=== PATIENT | female | born 2000 | race Caucasian/White ===

== ENCOUNTER 2022-10-23 01:02 | Emergency (ER) | payer BC, SELFPAY ==
[2022-10-23 01:11] VITALS: BP 115/76; PULSE 76; RESP 18; TEMP 36.7; O2SAT 99; BMI 21.9
[2022-10-23] MEDS: ONDANSETRON ODT 4 MG TAB PO (01:58)
--- NOTE | 2022-10-23 03:40 | ED_ITS ---
History of Present Illness General Chief Complaint: Epistaxis/Nosebleed Stated Complaint: Nosebleed Time Seen by Provider: 10/23/22 01:31 History of Present Illness HPI Narrative: 22-year-old young woman presenting to the emergency department with some cough and cold symptoms recently. Has had a couple nosebleeds lately. Tonight rubbed across her nose while in the shower and began bleeding. Is also feeling dizzy she says, but with further questioning this is actually lightheaded and nauseated; maybe from swallowing blood she thinks. Is not short of breath. No chest pain. Historically no bleeding problem noted. Related Data Home Medications Medication Instructions Recorded Confirmed fluoxetine 20 mg capsule (Prozac) 20 mg PO DAILY 10/23/22 10/23/22 Allergies Allergy/AdvReac Type Severity Reaction Status Date / Time No Known Drug Allergies Allergy Verified 10/24/22 15:45 Review of Systems Status of ROS: Reports: 6 or more systems reviewed and unremarkable except as noted in History and below PFSH PFSH Social History Smoking Status: Never smoker Do you use any of these nicotine containing products: None Second hand tobacco smoke exposure: No How often do you have a drink containing alcohol: never How often do you have six or more drinks on one occasion: Never AUDIT-C Alcohol total score: 0 Non-prescribed substance use: denies use Exam Narrative: Exam Narrative: Pleasant. Appeared in some mild distress and anxious ambulating to the bathroom at one point. I assess Pablo back in the room. Nose appears quite symmetrical. Prominent vasculature in distal left nasal septum. I think this likely is the source of bleed. There is a small pit in the right mid septum. No active bleeding in the posterior oropharynx or elsewhere. No unusual swellings. Mucous membranes do not appear particularly pale. Cranial nerves 2- 12 look to be intact. No nystagmus evident. Breathing easily. Heart in regular rate and rhythm. Const: Vital Signs, click to edit/add: Vital Signs - 24 hr 10/23/22 01:11 Temperature 98.1 F Pulse Rate [Pulse Oximeter] 76 Respiratory Rate 18 Blood Pressure [Le ft Upper Arm] 115/76 Pulse Oximetry 99 Oxygen Delivery Me thod Room Air Documenting provider has reviewed patient's vital signs: yes Course Vital Signs Vital signs: Initial Vital Signs Temperature 98.1 F 10/23/22 01:11 Temperature Source Temporal Artery Scan 10/23/22 01:11 Pulse Rate 76 10/23/22 01:11 Pulse Rhythm 10/23/22 01:11 Respiratory Rate 18 10/23/22 01:11 Blood Pressure 115/76 10/23/22 01:11 Blood Pressure Mean 89 10/23/22 01:11 Pulse Oximetry 99 10/23/22 01:11 Oxygen Delivery Method 10/23/22 01:11 Vital Signs Temperature 98.1 F 10/23/22 01:11 Pulse Rate 76 10/23/22 01:11 Respiratory Rate 18 10/23/22 01:11 Blood Pressure 115/76 10/23/22 01:11 Pulse Oximetry 99 10/23/22 01:11 Oxygen Delivery Method 10/23/22 01:11 Temperature 98.1 F 10/23/22 01:11 Pulse Rate 76 10/23/22 01:11 Respiratory Rate 18 10/23/22 01:11 Blood Pressure 115/76 10/23/22 01:11 Pulse Oximetry 99 10/23/22 01:11 Oxygen Delivery Method 10/23/22 01:11 MDM - Epistaxis MDM Narrative Medical decision making narrative: Offered reassurance at this point. Did not feel this requires further workup. I think some understandable anxiety on top of this bleeding has contributed to this sensation of lightheadedness. Given white petroleum jelly from stock here in the emergency department. Cotton balls and returned nose clamp. Discharge Plan Discharge Clinical Impression: Epistaxis Patient Disposition: Home, Self-Care Condition: Improved Instructions: Nosebleed (ED) Additional Instructions: Stay well-hydrated. Consider sleeping under the mist of cool mist humidifier. Can use that white petroleum jelly placing 2-3 times daily through the remainder of winter. If bleeding recurs can pack with cotton ball as discussed and/or apply nasal clamp. Return if can not get it stopped in about an hour. Prescriptions: No Action fluoxetine [Prozac] 20 mg capsule 20 mg PO DAILY Follow Up/Referrals: Nohemy Mir MD [Staff Physician] - Stand Alone Forms: [facility] Info Inst[facility]
== END 2022-10-23 02:09 | disposition home or self-care (01) ==
PROVIDERS: Emergency Provider Family Medicine; PCP Internal Medicine
DX: R04.0 Epistaxis (principal)
CPT/HCPCS: 99282; 99283; A9270

== ENCOUNTER 2022-10-24 15:39 | Emergency (ER) | payer BC, SELFPAY ==
[2022-10-24] VITALS (14 sets, daily range): BP systolic 105–118; BP diastolic 57–81; PULSE 65–82; RESP 16; TEMP 37; O2SAT 93–100; BMI 22.7
--- NOTE | 2022-10-24 16:28 | CRLHL7_ITS ---
For Patients: As a result of the Century Cures Act, medical imaging exams and procedure reports are released immediately into your electronic medical record. You may view this report before your referring provider. If you have questions, please contact your health care provider. INDICATION: Syncope. TECHNIQUE: Chest 1 views. COMPARISON: None. FINDINGS: Cardiovascular and mediastinum: Heart size and vasculature are normal in caliber and appearance. Lungs and pleural spaces: Lungs are clear. No sign of infiltrate or mass. No sign of pleural effusion. No pneumothorax. Bones and soft tissues: No significant findings. IMPRESSION: No acute or significant findings. Dictated by Medhat Nickerson MD @ 10/24/2022 4:39:56 PM (Electronically Signed)
[2022-10-24 17:19] LABS: Basophils Absolute Auto 0.05 K/uL (0.00-0.30); Basophils Percent Auto 0.6 % (0.0-3.0); Eosinophils Absolute Auto 0.12 K/uL (0.00-0.50); Eosinophils Percent Auto 1.5 % (0.0-7.0); Hematocrit 39.8 % (33.0-51.0); Hemoglobin* 13.5 gm/dL (12.0-16.0); Lymphocytes Absolute Auto 1.72 K/uL (0.90-2.90); Lymphocytes Percent Auto 21.8 % (20-44); Mean Corpuscular HGB Conc 34 gm/dL (32-36); Mean Corpuscular Hemoglobin 31 pg (26-34); Mean Corpuscular Volume 92 fL (80-100); Monocytes Percent Auto 6.2 % (0.0-11.0); Neutrophils Absolute Auto 5.51 K/uL (1.7-7.0); Neutrophils Percent Auto 69.9 % (42.0-72.0); Platelet Count* 365 K/uL (140-440); RDW Coefficient of Variation % 12.8 % (11.5-15.5); Red Blood Count 4.32 m/uL (4.00-5.20); White Blood Count* 7.89 K/uL (4.50-11.00)
[2022-10-24 17:20] LABS: Slide Review Reflex No
[2022-10-24 17:56] LABS: NT Pro B Type NatriureticPept* < 20 pg/mL; Troponin I* < 0.01 ng/mL (0.01-0.04)
--- NOTE | 2022-10-24 18:22 | ED.NURSE ---
Pt resting on cart. Denies needs. Awaiting pending lab results.
[2022-10-24 18:29] LABS: D Dimer Quantitative* 0.38 ug/ml (0.00-0.50)
--- NOTE | 2022-10-24 19:16 | ED.GENADULT ---
HPI - General Adult General Chief complaint: Nausea/Vomiting Stated complaint: Passed out this morning,Dizzy,Vomiting,Headache Time Seen by Provider: 10/24/22 16:21 History of Present Illness HPI narrative: 22-year-old young woman returning to the emergency department after passing out shortly after getting up this morning. Does not sound that there was a head injury. Describes an orthostatic like event where she was getting up. Was seen very early this morning here in this emergency department by myself after a period of epistaxis. I did not feel she was likely anemic from this episode. She had reported some lightheadedness. This seemed to have been a stressful experience. Denies history of exercise intolerance. No chest pain or palpitations. No shortness of breath. No fever. Was recommended to return to the emergency department with concern of symptomatic anemia I believe. Frontal headache. No apparent family history of dysrhythmias or sudden cardiac . Related Data Home Medications Medication Instructions Recorded Confirmed fluoxetine 20 mg capsule (Prozac) 20 mg PO DAILY 10/23/22 10/23/22 Allergies Allergy/AdvReac Type Severity Reaction Status Date / Time No Known Drug Allergies Allergy Verified 10/24/22 15:45 Review of Systems Status of ROS: Reports: 6 or more systems reviewed and unremarkable except as noted in History and below PFSH [facility] Social History Smoking Status: Never smoker Do you use any of these nicotine containing products: None Second hand tobacco smoke exposure: No How often do you have a drink containing alcohol: never How often do you have six or more drinks on one occasion: Never AUDIT-C Alcohol total score: 0 Non-prescribed substance use: denies use Exam Narrative: Exam Narrative: Pleasant. Quiet. NAD. Skin is warm and dry. Heart in regular rate and rhythm. Lungs are clear. Head looks to be atraumatic. Neck is supple with soreness in the paracervical musculature. Cranial nerves 2-12 intact. There is no nystagmus. Extraocular movements are full. No facial swelling erythema or tenderness. Not actively bleeding from her nose at this time. TMs are clear. Abdomen is soft. Moving all extremities without difficulty, fluidly, with good strength. No extremity edema. Speaking easily, fluidly. Breathing easily. Const: Vital Signs, click to edit/add: Vital Signs - 24 hr 10/24/22 15:43 10/24/22 16:43 10/24/22 16:55 Temperature 98.6 F Pulse Rate 69 Pulse Rate [Pulse Oximeter] 73 Pulse Rate [orthos tatic lying] 65 Pulse Rate [orthos tatic sitting] 65 Pulse Rate [orthos tatic standing] 65 Respiratory Rate 16 Blood Pressure Blood Pressure [Ri ght Upper Arm] 110/72 Blood Pressure [or thostatic lying Ri ght Arm] 111/75 Blood Pressure [or thostatic sitting Right Arm] 118/57 L Blood Pressure [or thostatic standing Right Arm] 112/69 Pulse Oximetry 98 99 Oxygen Delivery Me thod Room Air 10/24/22 16:58 10/24/22 17:00 10/24/22 17:02 Temperature Pulse Rate 72 68 73 Pulse Rate [Pulse Oximeter] Pulse Rate [orthos tatic lying] Pulse Rate [orthos tatic sitting] Pulse Rate [orthos tatic standing] Respiratory Rate Blood Pressure 112/81 106/81 Blood Pressure [Ri ght Upper Arm] Blood Pressure [or thostatic lying Ri ght Arm] Blood Pressure [or thostatic sitting Right Arm] Blood Pressure [or thostatic standing Right Arm] Pulse Oximetry 97 93 94 Oxygen Delivery Me thod 10/24/22 17:15 10/24/22 17:30 10/24/22 17:32 Temperature Pulse Rate 65 81 73 Pulse Rate [Pulse Oximeter] Pulse Rate [orthos tatic lying] Pulse Rate [orthos tatic sitting] Pulse Rate [orthos tatic standing] Respiratory Rate Blood Pressure 105/67 Blood Pressure [Ri ght Upper Arm] Blood Pressure [or thostatic lying Ri ght Arm] Blood Pressure [or thostatic sitting Right Arm] Blood Pressure [or thostatic standing Right Arm] Pulse Oximetry 100 98 99 Oxygen Delivery Me thod 10/24/22 17:45 10/24/22 18:00 10/24/22 18:01 Temperature Pulse Rate 69 72 70 Pulse Rate [Pulse Oximeter] Pulse Rate [orthos tatic lying] Pulse Rate [orthos tatic sitting] Pulse Rate [orthos tatic standing] Respiratory Rate Blood Pressure 111/67 Blood Pressure [Ri ght Upper Arm] Blood Pressure [or thostatic lying Ri ght Arm] Blood Pressure [or thostatic sitting Right Arm] Blood Pressure [or thostatic standing Right Arm] Pulse Oximetry 99 100 99 Oxygen Delivery Me thod 10/24/22 18:02 10/24/22 18:15 Temperature Pulse Rate 69 82 Pulse Rate [Pulse Oximeter] Pulse Rate [orthos tatic lying] Pulse Rate [orthos tatic sitting] Pulse Rate [orthos tatic standing] Respiratory Rate Blood Pressure Blood Pressure [Ri ght Upper Arm] Blood Pressure [or thostatic lying Ri ght Arm] Blood Pressure [or thostatic sitting Right Arm] Blood Pressure [or thostatic standing Right Arm] Pulse Oximetry 99 97 Oxygen Delivery Me thod Documenting provider has reviewed patient's vital signs: yes Course Vital Signs Vital signs: Initial Vital Signs Temperature 98.6 F 10/24/22 15:43 Temperature Source Temporal Artery Scan 10/24/22 15:43 Pulse Rate 73 10/24/22 15:43 Pulse Rhythm 10/24/22 15:43 Pulse Strength 3+ Normal 10/24/22 15:43 Respiratory Rate 16 10/24/22 15:43 Blood Pressure 110/72 10/24/22 15:43 Blood Pressure Mean 84 10/24/22 15:43 Blood Pressure Position Sitting 10/24/22 15:43 Pulse Oximetry 98 10/24/22 15:43 Oxygen Delivery Method 10/24/22 15:43 Vital Signs Temperature 98.6 F 10/24/22 15:43 Pulse Rate 73 10/24/22 15:43 Respiratory Rate 16 10/24/22 15:43 Blood Pressure 110/72 10/24/22 15:43 Pulse Oximetry 98 10/24/22 15:43 Oxygen Delivery Method 10/24/22 15:43 Temperature 98.6 F 10/24/22 15:43 Pulse Rate 82 10/24/22 18:15 Respiratory Rate 16 10/24/22 15:43 Blood Pressure 111/67 10/24/22 18:01 Pulse Oximetry 97 10/24/22 18:15 Oxygen Delivery Method 10/24/22 15:43 Medical Decision Making MDM Narrative Medical decision making narrative: I think a combination of factors factors likely contributing to this suspected syncope. Discussed IV fluid hydration. We did check orthostatics which were negative. Etiology though may include undiagnosed dysrhythmia/arrhythmia, dehydration and subsequent orthostatic event, hypertrophic cardiomyopathy, pulmonary embolus, ischemic cardiac event, anemia. EKG as below is reassuring. Chest x-ray reviewed by me without evidence of airspace disease or cardiomegaly. Lab Data Lab results reviewed: Yes I reviewed the patient's lab results Labs: Lab Results 10/24/22 10/24/22 10/24/22 Range/Units 17:10 17:10 17:10 WBC 7.89 (4.50-11.00) K/uL RBC 4.32 (4.00-5.20) m/uL Hgb 13.5 (12.0-16.0) gm/dL Hct 39.8 (33.0-51.0) % MCV 92 (80-100) fL MCH 31 (26-34) pg MCHC 34 (32-36) gm/dL RDW Coeff of Michel 12.8 (11.5-15.5) % Plt Count 365 (140-440) K/uL Neut % (Auto) 69.9 (42.0-72.0) % Lymph % (Auto) 21.8 (20-44) % [place] % (Auto) 6.2 (0.0-11.0) % Eos % (Auto) 1.5 (0.0-7.0) % Baso % (Auto) 0.6 (0.0-3.0) % Neut # (Auto) 5.51 (1.7-7.0) K/uL Lymph # (Auto) 1.72 (0.90-2.90) K/uL [place] # (Auto) 0.50 (0.00-0.90) K/UL Eos # (Auto) 0.12 (0.00-0.50) K/uL Baso # (Auto) 0.05 (0.00-0.30) K/uL D-Dimer Quant (PE/DVT) 0.38 (0.00-0.50) ug/ml Troponin I < 0.01 L (0.01-0.04) ng/mL NT-Pro-B Natriuret Pep < 20 pg/mL ECG Data Attestation: I personally reviewed and interpreted this ECG as follows: (Normal sinus rhythm rate of 73 initial downgoing of QRS complex though does not appear to qualify as Q-wave) Discharge Plan Discharge Clinical Impression: Syncope Patient Disposition: Home w/ Parent or Adult Condition: Improved Additional Instructions: Your labs and monitoring looked good here today. I would continue to focus on hydration. In the short term take care with transitions. Return if repeat episode. Do use that white petroleum jelly as discussed. Prescriptions: No Action fluoxetine [Prozac] 20 mg capsule 20 mg PO DAILY Follow Up/Referrals: Provider,Not a Local [Primary Care Provider] - Stand Alone Forms: [employer] Info Instructions
== END 2022-10-24 19:16 | disposition home or self-care (01) ==
PROVIDERS: Emergency Provider Family Medicine
DX: R55 Syncope and collapse (principal)
CPT/HCPCS: 36415; 71045; 83880; 84484; 85025; 85379; 93005; 99284

== ENCOUNTER 2023-09-23 10:44 | Outpatient (CLI) | payer BC, SELFPAY ==
--- OUTSIDE RECORDS SUMMARY | 2023-09-25 09:31 | XMS_ITS | Clinical Summary ---
Author Name Unknown Organization [facility] Address [place], [place] [address] Care Team Providers Care Joint Creaser Name Role Phone Pcp, No Primary Care [...] Name Administration Dates Next Due COVID-19 vaccine (I Just Shared NTech 30mcg/0.3mL) PF, MDV 02/08/2021,01/16/2021 Dtap-5 Pertussis [...] age 11-21 Completed 04/16/2019, 04/07/2014 Care Teams Joint Creaser Relationship Specialty Start Date End Date Pcp, No . PCP - General 09/22/21
== END 2023-09-23 10:45 | disposition home or self-care (01) ==
LOC: AMB 09-25 09:20
PROVIDERS: Visit Provider Emergency Medicine
DX: M54.9 Dorsalgia, unspecified (principal)
CPT/HCPCS: A0425; A0427

== ENCOUNTER 2023-09-23 11:15 | Emergency (ER) | payer BC, SELFPAY ==
[2023-09-23 11:16] VITALS: BP 114/76; PULSE 66; RESP 18; TEMP 36.8; O2SAT 99; BMI 23.5
--- NOTE | 2023-09-23 11:49 | ED.GENADULT ---
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 Pain is improved lying still, worse with movement. She has a history of back problems, she thinks she has done physical therapy maybe once. It does not sound like she has any officially diagnosed back problems, just says sometimes she has back pain. Her twin sister who is here with her says she has 4 herniated discs. She does not have any radiating pain, numbness, no weakness. She was given morphine and fentanyl by EMS but says that has not helped the pain. She denies other medical history aside from depression and anxiety, currently weaning off of her medications in anticipation of starting something different for anxiety. She has a psychiatrist in [place], where she is from. She is between therapists but is establishing with someone new currently. No allergies, no suspicion of . Related Data Home Medications Medication Instructions Recorded Confirmed No Known Home Medications 09/23/23 09/23/23 Allergies Allergy/AdvReac Type Severity Reaction Status Date / Time No Known Drug Allergies Allergy Verified 10/24/22 15:45 [facility] Social History Smoking Status: Never smoker Do you use any of these nicotine containing products: None Second hand tobacco smoke exposure: No How often do you have a drink containing alcohol: never How often do you have six or more drinks on one occasion: Never AUDIT-C Alcohol total score: 0 Non-prescribed substance use: denies use service: No Exam Narrative: Exam Narrative: Vital signs as noted above. In general, an alert, well-appearing patient. Lying flat on her back, looks comfortable. Head: Normocephalic, atraumatic. Eyes: Pupils are equal reactive. Extraocular movements are full. Conjunctivae are normal. ENT: Mucous membranes are moist. Throat is normal. Neck: Supple without lymphadenopathy. Heart: Regular rate and rhythm. No murmur or rub. Lungs: Clear bilaterally. No increased work of breathing, crackles or wheezes. Abdomen: Soft and nontender. No organomegaly. Extremities: Well perfused. No edema. No calf tenderness. Pulses intact. Neurologic: Patient is alert and oriented to person and place. Speech is fluent. Face is symmetric. Moves all extremities equally. Affect: Occasionally slightly tearful. Good eye contact, well groomed. Skin: Warm and dry. Well perfused. Const: Vital Signs, click to edit/add: Vital Signs - 24 hr 09/23/23 11:16 Temperature 98.2 F Pulse Rate [Pulse Oximeter] 66 Respiratory Rate 18 Blood Pressure [Ri t Upper Arm] 114/76 Pulse Oximetry 99 Oxygen Delivery Me thod Room Air Documenting provider has reviewed patient's vital signs: yes Course Course ED Course: Diagnostic considerations include muscle spasm, disc herniation, pars fracture. Paramedics gave her fentanyl and morphine, I initially gave her Toradol an Ativan which she said did not help. I gave her Dilaudid than and she said that did improve her pain, she was able to be ambulatory a albeit slowly. She is intact neurologically, I think it would be better to hold off on imaging as I think MRI would be the best test to investigate if she is not improving with conservative measures. Certainly with her history of athletics a pars fracture cannot be ruled out but I do not think that would change our management today. I recommended that she follow up with [facility] and if not improving MRI can be ordered as an outpatient. In the meantime, I have recommended ibuprofen 400 mg plus Tylenol 1000 mg 3 times daily. I prescribed Flexeril and oxycodone (8) for use for more severe pain. 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 As it is the weekend, I am unable to make a follow-up appointment for her for [facility] but we did give her the number and instructed her to call on Monday to schedule. Advised her would likely take several days before she would have significant improvement in her pain. Vital Signs Vital signs: Initial Vital Signs Temperature 98.2 F 09/23/23 11:16 Temperature Source Temporal Artery Scan 09/23/23 11:16 Pulse Rate 66 09/23/23 11:16 Respiratory Rate 18 09/23/23 11:16 Blood Pressure 114/76 09/23/23 11:16 Blood Pressure Mean 88 09/23/23 11:16 Blood Pressure Position Supine 09/23/23 11:16 Pulse Oximetry 99 09/23/23 11:16 Oxygen Delivery Method Room Air 09/23/23 11:16 Vital Signs Temperature 98.2 F 09/23/23 11:16 Pulse Rate 66 09/23/23 11:16 Respiratory Rate 18 09/23/23 11:16 Blood Pressure 114/76 09/23/23 11:16 Pulse Oximetry 99 09/23/23 11:16 Oxygen Delivery Method Room Air 09/23/23 11:16 Temperature 98.2 F 09/23/23 11:16 Pulse Rate 66 09/23/23 11:16 Respiratory Rate 18 09/23/23 11:16 Blood Pressure 114/76 09/23/23 11:16 Pulse Oximetry 99 09/23/23 11:16 Oxygen Delivery Method Room Air 09/23/23 11:16 Medications Administered Medications: Discontinued Medications Generic Name Dose Route Start Last Admin Trade Name Royce PRN Reason Stop Dose Admin Hydromorphone HCl 0.5 mg 09/23/23 12:43 09/23/23 12:53 Hydromorphone 0.5 Mg/0.5 Ml Inj IVP 09/23/23 12:44 0.5 mg ONCE ONE Administration Ketorolac Tromethamine 15 mg 09/23/23 11:46 09/23/23 11:57 Ketorolac 15 Mg/Ml Inj IVP 09/23/23 11:47 15 mg ONCE ONE Administration Lorazepam 1 mg 09/23/23 11:46 09/23/23 11:57 Lorazepam 2 Mg/Ml Inj IVP 09/23/23 11:47 1 mg ONCE ONE Administration Discharge Plan Discharge Clinical Impression: Low back pain Patient Disposition: Home, Self-Care Condition: Improved Instructions: Acute Low Back Pain (ED) Additional Instructions: For pain, ibuprofen 400 mg plus Tylenol 1000 mg 3 times daily with food for the next several days to week. If needed for uncontrolled pain, Flexeril (muscle relaxer), and or oxycodone as prescribed. Be aware that oxycodone is habit-forming, use only as directed and discard any unused pills. I would like you to be seen in follow-up at [facility] to determine whether imaging for possible pars fracture or herniated disc would be recommended at that time. We are unable to schedule that appointment as it is a weekend, so I will need you to call the clinic on Monday morning to schedule that. The phone number is [phone]. Light activity is fine, as symptoms allow. I would recommend no participation in athletics until you are seen for further evaluation. Activity Level: No Restrictions Discharge Diet: Regular Prescriptions: No Action No Known Home Medications Follow Up/Referrals: Provider,Not a Local [Primary Care Provider] - Stand Alone Forms: [employer] Info Instructions
--- OUTSIDE RECORDS SUMMARY | 2023-09-23 11:53 | XMS_ITS | Clinical Summary ---
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/31/2022 Encounters Date Type Department Care Team Description 09/07/2023 Travel from Last 3 Months Immunizations Name Administration Dates Next Due COVID-19 vaccine (Vitronet [employer] NTech 30mcg/0.3mL) PF, MDV 02/08/2021,01/16/2021 Dtap-5 Pertussis Antigens 08/01/2007,,05/02/2003,01/27,2002 HIB HbOC (HibTITER) 08/11/2003,01/27/2003,2002 HPV 9 (Gardasil 9) 02/17/2021,12/10/2020, 020 Hepatitis B (Adult) 10/22/2003,08/11/2003,2002 Hepatitis B, Unspecified 10/22/2003,08/11/2003,0 01/27/2003 Inactivated Polio Vaccine 08/01/2007,,05/02/2003,01/27 Influenza Virus, Unspecified 07/15/2021 Influenza, Injectable, Mdck, Quadrivalent, W/preservative 06/21/2022,05/20/2021 MMR 08/01/2007,12/06/2005 Meningococcal Vaccine (Menactra) 04/16/2019,08/1 08/2013 Pneumococcal conj 7-Valent (Prevnar 7) 0 12/06/2005,05/02/2003,01/27/2003,11/27 Tdap 04/07/2014 Varicella Vaccine 08/01/2007,08/11/2003 Social History Tobacco Use Types Packs/Day Years Used Date Smoking Tobacco: Never Smokeless Tobacco: Never Tobacco Cessation:Counseling Given: Yes Alcohol Use Standard Drinks/Week Comments Never 0 (1 standard drink = 0.6 oz pur e alcohol) PHQ-2 Answer Date Recorded PHQ-2 TOTAL SCORE 2 12/12/2022 Social Connections Answer Date Recorded Frequency of Communication with Friends and Fami ly 0 10/30/2022 Financial Resource Strain Answer Date R ecorded Difficulty of Paying Living Expenses 3 10/30/2022 Difficulty of Paying Living Expenses Not on file 10/30/2022 Food Insecurity Answer Date Recorded Worried About Running Out of Food in the Last Ye ar 1 10/30/2022 Transportation Needs Answer Date Record ed Lack of Transportation (Medical) 1 10/30/2022 Housing Stability Answer Date Recorded Unable to Pay for Housing in the Last Year 1 10/30/2022 Sex and Gender Information Value Date Recorded Sex Assigned at Not on file Gender Identity Not on file Sexual Orientation Not on file Obstetrics History Last Filed Vital Signs Vital Sign Reading Time Taken Comments Blood Pressure 102/62 01/25/2023 2:42 PM CDT Pulse 90 01/25/2023 2:42 PM CDT Temperature 36.7 ??C (98 ??F) 01/25/2023 2:42 PM CDT Respiratory Rate 20 01/25/2023 2:42 PM CDT Oxygen Saturation 97% 01/25/2023 2:42 PM CDT Inhaled Oxygen Concentration - - Weight 68.5 kg (151 lb) 01/25/2023 2:42 PM CDT Height 170.2 cm (5' 7) 12/12/2022 2:54 PM CDT Body Mass Index - - Plan of Treatment Health Maintenance Due Date Last Done Comments HIV for age 15-65 2017 Chlamydia for age 16-24 2018 Hepatitis C screening for age 18-79 2020 HPV series for age 9-26 (3 - 3-dose series) 05/12/2021 02/17/2021, 12/10/2020, 03/16/2020 COVID-19 vaccine series ( season) 2023 02/08/2021, 01/16/2021 Influenza for age 9-49 04/28/2023 , 07/15/2021, 05/20/2021 Pap test for age 21-65 2023 BMI (ht and wt on same day) for age 18+ 12/13/2023 12/12/2022 Depression screening for age 12+ 12/14/2023 12/13/2022, 12/12/2022, 12/12/2022 Tetanus booster 04/07/2024 04/07/2014 Pneumococcal series for age 6-64 Aged Out 12/06/2005, 05/02/2003, 01/27/2003, Additional history exists No longer eligible based on patient's age to complete this topic Tdap Completed 04/07/2014 Meningococcal series for age 11-21 Completed 04/16/2019, 04/07/2014 Care Teams Almond Paste Molder Relationship Specialty Start Date End Date Pcp, No . PCP - General 09/22/21
[2023-09-23] MEDS: LORazepam 2 MG/ML inj 1 MG IVP (11:57)
[2023-09-23] MEDS: KETOROLAC 15 MG/ML inj IVP (11:57)
[2023-09-23] MEDS: HYDROmorphone 0.5 mg/0.5 ml inj IVP (12:53)
== END 2023-09-23 14:10 | disposition home or self-care (01) ==
PROVIDERS: Emergency Provider Emergency Medicine
DX: M54.50 Low back pain, unspecified (principal); Y93.64 Activity, baseball
CPT/HCPCS: 96374; 96375; 99284; J1170; J1885; J2060

== ENCOUNTER 2023-12-15 15:30 | Outpatient (RCR) | payer BC, SELFPAY | END 2024-02-07 09:52 | disposition home or self-care (01) | PROVIDERS: Visit Provider Family Medicine | DX: M54.9 Dorsalgia, unspecified (principal); Z51.89 Encounter for other specified aftercare | CPT/HCPCS: 97110; 97112; 97140; 97161; 97530; 97535 ==

== ENCOUNTER 2024-05-22 11:30 | Outpatient (RCR) | payer SELFPAY | END 2024-08-27 07:38 | disposition home or self-care (01) | PROVIDERS: Visit Provider Family Medicine | DX: M54.50 Low back pain, unspecified (principal); G89.29 Other chronic pain; M62.81 Muscle weakness (generalized); Z51.89 Encounter for other specified aftercare | CPT/HCPCS: 97110; 97161 ==

== ENCOUNTER 2024-09-14 14:25 | Emergency (ER) | payer BC, SELFPAY ==
--- NOTE | 2024-09-14 14:29 | ED_ITS ---
HPI - General Adult General Time Seen by Provider: 14:29 Date Seen: 09/14/24 Chief complaint: Abdominal Pain Stated complaint: large blood clot passed in stool, dizzy, lighthead Time Seen by Provider: 09/14/24 14:28 Source: patient Mode of arrival: ambulatory Limitations: no limitations History of Present Illness HPI narrative: 24-year-old female who comes in with rectal bleeding and abdominal pain. Patient presents today with rectal being abdominal pain starting today. She notes she had a stool today in past about a quarter-sized clot, also some lower abdominal pain and rectal pain. She notes some constipation a couple days ago but that has improved. No fever chills, no urinary symptoms. Not on blood thinners. Does report distant history of rectal bleeding several years ago, was recommended for colonoscopy but did not follow-up with that and has had intermittent bleeding since then. Related Data Home Medications ?Medication ?Instructions ?Recorded ?Confirmed methylphenidate HCl 5 mg tablet 5 mg PO BID 07/14/24 09/14/24 (Ritalin) viloxazine 09/14/24 Previous Rx's ?Medication ?Instructions ?Recorded docusate sodium 100 mg capsule 100 mg PO BID #14 caps 09/14/24 (Colace) Allergies Allergy/AdvReac Type Severity Reaction Status Date / Time No Known Drug Allergies Allergy Verified 09/14/24 14:37 [facility] Surgical History [place] teeth extracted ?K08.409 - Partial loss of teeth, unspecified cause, unspecified class (ICD- 10) Social History Smoking Status: Never smoker Do you use any of these nicotine containing products: None Second hand tobacco smoke exposure: No How often do you have a drink containing alcohol: never How often do you have six or more drinks on one occasion: Never AUDIT-C Alcohol total score: 0 Non-prescribed substance use: denies use service: No Exam Narrative: Exam Narrative: General: Well-developed and well-nourished, no acute distress Head: Atraumatic and normocephalic Eyes: Pupils are equal reactive, extraocular motions intact, conjunctiva clear ENT: External nose and ears are normal, posterior pharynx without erythema or exudate Neck: No midline cervical tenderness, full spontaneous range of motion the neck , trachea midline, no adenopathy Heart: Regular rate and rhythm no murmurs or thrills Lungs: Clear to auscultation bilaterally without wheezes or crackles Abdomen: Soft, nontender, nondistended with active bowel sounds Musculoskeletal: No tenderness, deformity, or edema Neurologic: Awake, alert, and oriented x3, no gross focal neurologic deficits, cranial nerves intact as tested Psych: Mood and affect are appropriate Skin: No rashes Rectal: Small 3 mm laceration at the anal verge on the right with active slow bleed, there is tenderness in this area which reproduces patient's symptom Const: Vital Signs, click to edit/add: Vital Signs - 24 hr 09/14/24 14:32 Temperature 97.9 F Pulse Rate [Left P ulse Oximeter] 99 Respiratory Rate 16 Blood Pressure [Ri ght Upper Arm] 113/75 Pulse Oximetry 96 Oxygen Delivery Me thod Room Air Course Course ED Course: Reviewed most recent ENT clinic from August 23 when patient was seen with bilateral cerumen impaction. Also reviewed prior GI visit from July 2023 which was for blood in the stools, at that time she reported rectal bleeding that has been with almost every stool for 3 years. Was recommended to have a colonoscopy but is does not appear that that was done. Patient presents today with rectal pain, low abdominal pain and rectal bleeding. She had 1 episode of blood in the stool as well as a quarter-sized clot reported, notes some low abdominal rectal pain as well. On exam, patient is vital is stable, no abdominal tenderness, on rectal exam there is a small tear with active bleeding which likely is the source of symptoms today. Discussed plan for testing, if labs are reassuring, given no abdominal tenderness on exam, would defer CT abdomen and pelvis. Reevaluation(s) Time of Reevaluation #1: 16:40 Reevaluation #1: Labs ordered and independently interpreted by me with no leukocytosis, normal hemoglobin, mild hypokalemia but otherwise normal basic metabolic panel, negative CRP. Patient is stable for discharge with outpatient follow-up, consider colonoscopy if symptoms persist. Vital Signs Vital signs: Initial Vital Signs Temperature 97.9 F 09/14/24 14:32 Temperature Source Oral 09/14/24 14:32 Pulse Rate 99 09/14/24 14:32 Respiratory Rate 16 09/14/24 14:32 Blood Pressure 113/75 09/14/24 14:32 Blood Pressure Mean 87 09/14/24 14:32 Blood Pressure Position Sitting 09/14/24 14:32 Pulse Oximetry 96 09/14/24 14:32 Oxygen Delivery Method Room Air 09/14/24 14:32 Vital Signs Temperature 97.9 F 09/14/24 14:32 Pulse Rate 99 09/14/24 14:32 Respiratory Rate 16 09/14/24 14:32 Blood Pressure 113/75 09/14/24 14:32 Pulse Oximetry 96 09/14/24 14:32 Oxygen Delivery Method Room Air 09/14/24 14:32 Temperature 97.9 F 09/14/24 14:32 Pulse Rate 99 09/14/24 14:32 Respiratory Rate 16 09/14/24 14:32 Blood Pressure 113/75 09/14/24 14:32 Pulse Oximetry 96 09/14/24 14:32 Oxygen Delivery Method Room Air 09/14/24 14:32 Medical Decision Making Lab Data Labs: Lab Results 09/14/24 Range/Units 15:10 WBC 10.62 (4.50-11.00) K/uL RBC 4.27 (4.00-5.20) m/uL Hgb 13.0 (12.0-16.0) gm/dL Hct 38.1 (33.0-51.0) % MCV 89 (80-100) fL MCH 30 (26-34) pg MCHC 34 (32-36) gm/dL RDW Coeff of Michel 13.1 (11.5-15.5) % Plt Count 393 (140-440) K/uL Neut % (Auto) 77.8 H (42.0-72.0) % Lymph % (Auto) 14.9 L (20-44) % [place] % (Auto) 5.4 (0.0-11.0) % Eos % (Auto) 0.3 (0.0-7.0) % Baso % (Auto) 0.7 (0.0-3.0) % Neut # (Auto) 8.30 H (1.7-7.0) K/uL Lymph # (Auto) 1.60 (0.90-2.90) K/uL [place] # (Auto) 0.60 (0.00-0.90) K/UL Eos # (Auto) 0.03 (0.00-0.50) K/uL Baso # (Auto) 0.07 (0.00-0.30) K/uL Abs Immat Gran (auto) 0.10 (0.00-0.30) K/uL Imm/Tot Granulo (auto) 0.9 % Sodium 140 (135-149) mmol/L Potassium 3.4 L (3.6-5.1) mmol/L Chloride 106 (96-114) mmol/L Carbon Dioxide 24 (20-32) mmol/L Anion Gap 10 (7-15) mEq/L BUN 7 (5-24) mg/dL Creatinine 0.7 (0.5-1.5) mg/dL Estimated Creat Clear 122.59 Estimated GFR 125 ml/min Glucose 113 (60-115) mg/dL Calcium 9.2 (8.4-10.6) mg/dL C-Reactive Protein < 0.5 L (0.5-1.0) mg/dL Discharge Plan Discharge Clinical Impression: Acute anal fissure Patient Disposition: Home, Self-Care Instructions: Rectal Bleeding (ED), Anal Fissure (ED) Additional Instructions: Take stool softener as prescribed Follow-up with primary care for consideration for further evaluation including colonoscopy Activity Level: Activity as Tolerated Discharge Diet: Regular Prescriptions: New docusate sodium [Colace] 100 mg capsule 100 mg PO BID Qty: 14 0RF No Action methylphenidate HCl [Ritalin] 5 mg tablet 5 mg PO BID viloxazine Follow Up/Referrals: Provider,Not a Local [Primary Care Provider] - Stand Alone Forms: [employer] Info Instructions
[2024-09-14 14:32] VITALS: BP 113/75; PULSE 99; RESP 16; TEMP 36.6; O2SAT 96; BMI 25.1
[2024-09-14 15:24] LABS: Basophils Absolute Auto 0.07 K/uL (0.00-0.30); Basophils Percent Auto 0.7 % (0.0-3.0); Eosinophils Absolute Auto 0.03 K/uL (0.00-0.50); Eosinophils Percent Auto 0.3 % (0.0-7.0); Hematocrit 38.1 % (33.0-51.0); Immature Granulocytes Pct Auto 0.9 %; Lymphocytes Percent Auto 14.9 % (20-44); Mean Corpuscular HGB Conc 34 gm/dL (32-36); Mean Corpuscular Hemoglobin 30 pg (26-34); Mean Corpuscular Volume 89 fL (80-100); Monocytes Percent Auto 5.4 % (0.0-11.0); Neutrophils Percent Auto 77.8 % (42.0-72.0); Platelet Count* 393 K/uL (140-440); RDW Coefficient of Variation % 13.1 % (11.5-15.5); Red Blood Count 4.27 m/uL (4.00-5.20); White Blood Count* 10.62 K/uL (4.50-11.00)
[2024-09-14 15:40] LABS: Chloride* 106 mmol/L (96-114); Potassium* 3.4 mmol/L (3.6-5.1); Sodium* 140 mmol/L (135-149)
[2024-09-14 15:42] LABS: Creatinine* 0.7 mg/dL (0.5-1.5); Est. Creatinine Clearance* 122.59; Estimated Glomerular Filt Rate 125 ml/min
[2024-09-14 15:43] LABS: Anion Gap 10 mEq/L (7-15); Blood Urea Nitrogen* 7 mg/dL (5-24); Calcium* 9.2 mg/dL (8.4-10.6); Carbon Dioxide* 24 mmol/L (20-32); Glucose* 113 mg/dL (60-115)
[2024-09-14 15:47] LABS: C Reactive Protein* < 0.5 mg/dL (0.5-1.0)
[2024-09-14 15:57] LABS: Slide Review Reflex No
== END 2024-09-14 17:11 | disposition home or self-care (01) ==
PROVIDERS: Emergency Provider Family Medicine
DX: K60.2 Anal fissure, unspecified (principal)
CPT/HCPCS: 36415; 80048; 85025; 86140; 99283; 99284